=== PATIENT | female | born 1970 | race Caucasian/White ===

== ENCOUNTER 2022-05-26 11:12 | Emergency (ER) | payer OTHER, SELFPAY ==
--- NOTE | 2022-05-26 11:29 | XR_ITS ---
FINAL REPORT CLINICAL HISTORY: cough, soa, tightness/burning in chest FINDINGS: Two views of the chest were obtained. The heart size and pulmonary vascularity are within normal limits. The mediastinum is normal. No acute pulmonary abnormality is identified. There is no pneumothorax. The bony thorax is intact. IMPRESSION: No active cardiopulmonary disease. Reviewed, Interpreted and Dictated by Mitchell Delaney III, MD Transcribed by Brady Bueno Authenticated and [facility]
--- NOTE | 2022-05-26 11:31 | HMH.EDUTC ---
[facility] Disposition Clinical Impression: Viral syndrome Acute bronchitis Qualifiers: Bronchitis organism: unspecified organism Qualified Code(s): J20.9 - Acute bronchitis, unspecified Disposition: Home, Self-Care Condition on Discharge: Good Instructions: DI for COVID-19 (Suspected or Confirmed ), Preventing the Spread of Coronavirus Discharge Instructions Additional Instructions: Drink plenty of fluids. Take tylenol or ibuprofen for pain or fever. Take the medications as directed. Follow up with your regular doctor. GO TO THE ER FOR ANY WORSENING SYMPTOMS Quarantine until you know the results of your covid-19 test. Notify your school or workplace of your results and follow their instructions regarding return to work/school. Prescriptions: Benzonatate [Benzonatate 100mg cap] 100 mg PO TIDP PRN #30 cap PRN Reason: Cough Transmission Status: Received by [facility] methylPREDNISolone [Medrol] 4 mg PO DIRECTED 6 Days #21 packet Transmission Status: Received by [facility] Azithromycin [Z-Milton 250mg Tab*] 250 mg PO UD DOSE PK #6 tab Transmission Status: Received by [facility] Referrals: Provider,Referral, [Primary Care Provider] - Time of Disposition: 11:56 Medical Decision Making - Medical Records Medical records reviewed: No: I reviewed the patient's medical records. - Chinedu Inquiry Pt receiving controlled substance: No Vital Signs: 05/26/22 11:32 05/26/22 12:08 Temperature 98.3 F 98.3 F Temperature Source Oral Pulse Rate 110 H Pulse Rate [Left] 110 H Respiratory Rate 20 20 Blood Pressure 192/97 H Blood Pressure [Right Arm] 192/97 H Blood Pressure Mean [Right Arm] 128 02 Sat by Pulse Oximetry 97 Orders (Tests/Meds): ORDERS Category Date Time Status Covid-19 Nasal PCR ([facility]) Routine Lab 05/26/22 12:05 Received [facility] HPI - General Stated complaint: cough; tightness in chest Time Seen by Provider: 05/26/22 11:31 - History of Present Illness Provider Complaint: She states that for the past 2 days she has had body aches, chills, low grade fever, sinus congestion and ear pain. - Related Data Home Medications Medication Instructions Recorded Confirmed fenofibrate nanocrystallized 145 145 mg PO ONCE 18 mg tablet pravastatin 10 mg tablet 10 mg PO QHS 02/23/18 triamterene 37.5 0.5 tab PO QAM tab 02/23/18 mg-hydrochlorothiazide 25 mg tablet Previous Rx's Medication Instructions Recorded Azithromycin [Z-Milton 250mg Tab*] 250 mg PO UD DOSE PK #6 tab 05/26/22 Benzonatate [Benzonatate 100mg 100 mg PO TIDP PRN #30 cap 05/26/22 cap] methylPREDNISolone [Medrol] 4 mg PO DIRECTED 6 Days #21 05/26/22 packet Allergies Allergy/AdvReac Type Severity Reaction Status Date / Time Penicillins Allergy Verified 05/26/22 11:35 [facility] History - Hepatitis A Screen Attestation statement:: This patient has been screened for Hepatitis A risk factors. I have reviewed the patient's past medical history: Yes Medical History: Reports:: Hyperlipidemia, Hypertension Other Surgeries: Yes: Appendectomy, - Social History Smoking Status: Current every day smoker Tobacco Type: cigarettes # Packs/Day (cigarettes): 1 Alcohol Intake: never Substance Use Type: denies use Family Hx:: Hyperlipidemia, Hypertension, Diabetes, Heart Attack, Cancer ROS Obtained: Yes All systems reviewed & no additional complaints - Constitutional Constitutional: Reports as per HPI - Eyes Eyes: Denies eye discharge - ENT Ears, Nose, Mouth, and Throat: Reports as per HPI - Cardiovascular Cardiovascular: Denies chest pain - Respiratory Respiratory: Reports chest congestion, Reports cough Physical Exam - General General appearance: alert, in no apparent distress - Head Head exam: atraumatic, normocephalic, normal inspection - Eye Eye exam: Present: normal appearance, PERRL, EOMI - ENT ENT exa
[2022-05-26 11:32] VITALS: BP 192/97; PULSE 110; RESP 20; TEMP 36.8; O2SAT 97; BMI 39.8
[2022-05-26 12:08] VITALS: BP 192/97; PULSE 110; RESP 20; TEMP 36.8
== END 2022-05-26 12:09 | disposition home or self-care (01) ==
PROVIDERS: Emergency Provider Nurse Practitioner Family
DX: J20.9 Acute bronchitis, unspecified (principal); H92.09 Otalgia, unspecified ear; Z20.822 Contact with and (suspected) exposure to COVID-19; I10 Essential (primary) hypertension; E78.5 Hyperlipidemia, unspecified; M79.10 Myalgia, unspecified site; F17.210 Nicotine dependence, cigarettes, uncomplicated; Z79.52 Long term (current) use of systemic steroids; Z88.0 Allergy status to penicillin; Z82.49 Family history of ischemic heart disease and other diseases of the circulatory system; Z83.438 Family history of other disorder of lipoprotein metabolism and other lipidemia; Z83.3 Family history of diabetes mellitus; Z80.9 Family history of malignant neoplasm, unspecified
CPT/HCPCS: 71046; 99213; C9803; G0463; U0003; U0005

== ENCOUNTER 2022-09-07 10:33 | Emergency (ER) | payer OTHER, SELFPAY ==
[2022-09-07 12:15] VITALS: BP 175/105; PULSE 96; RESP 20; TEMP 37.1; O2SAT 95; BMI 37.5
--- NOTE | 2022-09-07 12:36 | EXP.UTC ---
Discharge Plan Disposition Patient Disposition: Home, Self-Care Condition: Good Prescriptions Prescriptions: New prednisone 10 mg tablet 10 mg PO BID 5 Days Qty: 10 0RF guaifenesin [Mucinex] 600 mg tablet extended release 12hr 600 mg PO BID PRN (Reason: cough) Qty: 20 0RF azithromycin [Zithromax Z-Milton] 250 mg tablet See Rx Instructions .ROUTE .COMPLEX 5 Days Qty: 6 0RF Rx Instructions: For 250 mg dose pack: take 500 mg today (day 1), then 250 mg for 4 days (days 2-5) methocarbamol 500 mg tablet 500 mg PO BID PRN (Reason: muscle spasm) Qty: 14 0RF benzonatate 100 mg capsule 100 mg PO TID PRN (Reason: cough) Qty: 15 0RF Rx Instructions: take at night to help with cough so you can rest No Action azithromycin 250 MG tablet 250 mg PO UD DOSE PK Qty: 6 0RF Rx Instructions: Take two (2) tablets today, then one (1) tablet days #2 thru #5 benzonatate 100 MG capsule 100 mg PO TIDP PRN (Reason: Cough) Qty: 30 0RF methylprednisolone 4 MG tablets,dose pack 4 mg PO DIRECTED 6 Days Qty: 21 0RF Referrals Follow up/Referrals: Nura Vazquez MD [Primary Care Provider] - See instructions Activity Restrictions/Add. Instructions Additional Instructions/Restrictions: Start antibiotic today. Be sure to complete entire prescription even if feeling better Monitor temp. Tylenol every 4 hours as needed and / or ibuprofen every 6 hours as needed ( As long as your primary care physician has told you that it ok to take both. For fever/aches/pains ER if no less than 101 despite Tylenol or Motrin Humidifier/vaporizer or hot steamy shower Inhaler every 4-6 hours as needed like we discussed. If unsure how to use it, ask pharmacist to demonstrate how. Should help open airways and improve cough, wheezing, and shortness of breath Mucinex for your cough and chest congestion Be sure to drink lots of water. *Tessalon Perles will not cause drowsiness but use at bedtime to help stop cough so that you may get some rest. *Start steroid today. Helps with inflammation therefore, cough and wheezing. Follow directions on the package. Reviewed side effects. Patient reports taking them before. Follow up IMMEDIATELY for new or worsening of symptoms OR no noticeable improvement over the next 48-72 hours. 911 immediately for any life threatening symptoms such as chest pain or difficulty breathing Clinical Impressions Clinical Impression: Sinusitis, Bronchitis Instructions Patient Instructions: DI for Sinusitis, Sinusitis Discharge ED Provider: Jagruti Barrett [facility] [place] General Stated complaint: sob, back pain, cough Mode of Arrival: Ambulatory Source of Information: Patient Limitations: No Limitations Time Seen by Provider: 09/07/22 12:36 Description of Symptoms (Recalled from Triage Doc. by RN): PATIENT C/O PRODUCTIVE COUGH THAT STARTED A WEEK AGO AND HAS GOTTEN WORSE. ALSO C/O MID-BACK PAIN, SOA AND WHEEZING HEENT Symptoms (Recalled from RN notes): No Resp Symptoms (Recalled from RN notes): Yes Skin Symptoms (Recalled from RN notes): No MS Symptoms (Recalled from RN notes): No Functional Status (Recalled from RN notes): WNL History of Present Illness Provider Complaint: Patient states that she hasnt felt well for over a week States that she has been having sinus congestion and pressure, cough, pain in her mid back from coughing so much thinks she may have pulled a muscle and felt a little SOA at times after cough and wheezing at night States that today she wasnt feeling any better and has been taking OTC cold medications but they having helped much Related Data Home Medications Medication Instructions Recorded Confirmed fenofibrate nanocrystallized 145 145 mg PO ONCE 02/23/18 mg tablet pravastatin 10 mg tablet 10 mg PO QHS 02/23/18 triamterene 37.5 0.5 tab PO QAM 02/23/18 mg-hydrochlorothiazide 25 mg tablet P
[2022-09-07 12:50] VITALS: BP 160/100; PULSE 96; RESP 20; TEMP 37.1; O2SAT 95
== END 2022-09-07 12:58 | disposition home or self-care (01) ==
PROVIDERS: Emergency Provider Nurse Practitioner; PCP Family Medicine
DX: R06.02 Shortness of breath (principal); M54.6 Pain in thoracic spine; R05.9 Cough, unspecified; R50.9 Fever, unspecified; R09.89 Other specified symptoms and signs involving the circulatory and respiratory systems; R51.9 Headache, unspecified; I10 Essential (primary) hypertension; E78.5 Hyperlipidemia, unspecified; J45.909 Unspecified asthma, uncomplicated; F17.210 Nicotine dependence, cigarettes, uncomplicated; Z79.52 Long term (current) use of systemic steroids; Z79.899 Other long term (current) drug therapy; Z88.0 Allergy status to penicillin; Z88.8 Allergy status to other drugs, medicaments and biological substances; Z85.9 Personal history of malignant neoplasm, unspecified
CPT/HCPCS: 99213; G0463

== ENCOUNTER → 2022-10-24 12:36 | Outpatient (CLI) | payer OTHER, SELFPAY ==
--- NOTE | 2022-10-24 12:40 | MM_ITS ---
PROCEDURE INFORMATION: Exam: MG Bilateral Screening 3D Mammography Exam date and time: 10/24/2022 12:57 PM Age: 52 years old Clinical indication: Screening. No family history of breast cancer. TECHNIQUE: Imaging protocol: Bilateral Screening tomosynthesis and 2D mammography including computer-aided detection (CAD) when performed. COMPARISON: 1. MG DMSB DIGITAL MAMM-SCREEN BILATERAL 11/03/2010 4:47 PM 2. MG DIGMAMMS MAMMOGRAM SCREEN-PROCUREMENT ANALYST N/C 09/28/2007 9:57 AM 3. MG DIGMAMMS MAMMOGRAM SCREEN-PROCUREMENT ANALYST N/C 09/03/2004 9:57 AM FINDINGS: MAMMOGRAPHY: Breast composition: There are scattered areas of fibroglandular density. Mass: No suspicious mass.Architectural distortion: None. Calcifications: No suspicious calcifications. Asymmetric density: None. Skin thickening: None. Axillary adenopathy: None. IMPRESSION: No mammographic evidence of malignancy. Annual screening is recommended unless otherwise clinically indicated. ASSESSMENT: BI-RADS Category 1: Negative
== END ==
PROVIDERS: PCP Family Medicine; Visit Provider Family Medicine
DX: Z12.31 Encounter for screening mammogram for malignant neoplasm of breast (principal)
CPT/HCPCS: 77063; 77067

== ENCOUNTER 2024-06-27 10:08 | Emergency (ER) | payer OTHER, SELFPAY ==
[2024-06-27 10:10] VITALS: BP 150/104; PULSE 121; RESP 20; TEMP 36.6; O2SAT 94; BMI 37.2
--- NOTE | 2024-06-27 10:26 | ECG_ITS ---
APPROVED REPORT Exam: Resting ECG HR:118 bpm ECG Measurements Heart Rate 118 AXES CO 120 P 57 QRSd 80 QRS -42 QT 305 T 37 QTc 375 Conclusion Sinus tachycardia Left axis deviation Electronically signed by : NEGIN RILEY, 06/27/2024 15:44:52
[2024-06-27 10:30] VITALS: BP 136/92; PULSE 117; O2SAT 97
[2024-06-27 10:50] LABS: Microscopic, Urine URINE MICROSCOPIC (MICROSCOPIC)
[2024-06-27 10:50] LABS: Basophils # 0.1 K/mm3 (0-0.2); Basophils % 1.1 % (0.1-2.0); Eosinophils # 0.2 K/mm3 (0.0-0.4); Eosinophils % 2.2 % (0.1-12.0); Hematocrit 54.6 % (37.0-47.0); Hemoglobin 17.4 g/dL (12.2-16.2); Lymphocytes # 2.6 K/mm3 (0.7-4.5); Lymphocytes % 25.5 % (10-50); Mean Corpuscular HGB Conc 31.8 g/dL (31.8-35.4); Mean Corpuscular Volume 97.4 fl (81-99); Mean Platelet Volume 8.3 fl (7.4-10.4); Monocytes # 0.5 K/mm3 (0.1-1.0); Neutrophils # 6.6 K/mm3 (1.8-7.8); Neutrophils % 66.1 % (37.0-80.0); Platelet Count 247 K/mm3 (142-424); Red Blood Count 5.61 M/mm3 (4.20-5.40); Red Cell Distribution Width 15.2 % (11.5-17.5)
--- NOTE | 2024-06-27 11:00 | PC.NURSE ---
PT ambulatory to bathroom
[2024-06-27 11:01] LABS: Appearance,Urine CLEAR (Clear); Bilirubin,Urine Negative (Negative); Blood, Urine Negative (Negative); Color,Urine YELLOW (Yellow); Glucose,Urine (UA) Negative (Negative); Ketones,Urine Negative (Negative); Leukocyte Esterase,Urine Negative (Negative); Nitrate,Urine Negative (Negative); Protein,Urine Negative (Negative); Urobilinogen,Urine 0.2 EU/dl (0.2)
[2024-06-27 11:04] LABS: Albumin Level 4.6 g/dl (3.5-5.0); Chloride 106 mmol/L (98-107); Potassium 4.2 mmoL/L (3.5-5.1); Sodium 136 mmol/L (136-145)
[2024-06-27 11:07] LABS: Alanine Aminotransferase 42 U/L (12-78); Albumin/Globulin Ratio 1.5 (1.1-1.8); Alkaline Phosphatase 63 U/L (38-126); Anion Gap 10.2 mEq/L (5-15); Aspartate Amino Transferase 24 U/L (14-36); Bilirubin,Total 0.8 mg/dl (0.2-1.3); Blood Urea Nitrogen 12 mg/dl (7-17); Calcium 9.6 mg/dl (8.4-10.2); Carbon Dioxide 24 mmol/L (22.0-30.0); Creatinine Clearance Estimated 119 mL/min (50-200); Estimated Glomerular Filt Rate 74 ml/min (>60); GFR (African American) 90 ML/MIN (>60); Globulin 3.1 g/dL (1.3-3.2); Glucose 153 mg/dl (74-100); Lipase 137 U/L (23-300); Total Protein,Serum 7.7 g/dl (6.3-8.2)
--- NOTE | 2024-06-27 11:13 | ED_ITS ---
Discharge Plan Disposition Patient Disposition: Home, Self-Care Chief Complaint: Abdominal Pain Prescriptions Prescriptions: No Action azithromycin 250 MG tablet 250 mg PO UD DOSE PK Qty: 6 0RF Rx Instructions: Take two (2) tablets today, then one (1) tablet days #2 thru #5 benzonatate 100 MG capsule 100 mg PO TIDP PRN (Reason: Cough) Qty: 30 0RF methylprednisolone 4 MG tablets,dose pack 4 mg PO DIRECTED 6 Days Qty: 21 0RF prednisone 10 mg tablet 10 mg PO BID 5 Days Qty: 10 0RF guaifenesin [Mucinex] 600 mg tablet extended release 12hr 600 mg PO BID PRN (Reason: cough) Qty: 20 0RF azithromycin [Zithromax Z-Milton] 250 mg tablet See Rx Instructions .ROUTE .COMPLEX 5 Days Qty: 6 0RF Rx Instructions: For 250 mg dose pack: take 500 mg today (day 1), then 250 mg for 4 days (days 2-5) methocarbamol 500 mg tablet 500 mg PO BID PRN (Reason: muscle spasm) Qty: 14 0RF benzonatate 100 mg capsule 100 mg PO TID PRN (Reason: cough) Qty: 15 0RF Rx Instructions: take at night to help with cough so you can rest Referrals Follow up/Referrals: Nura Vazquez MD [Primary Care Provider] - See instructions Activity Restrictions/Add. Instructions Additional Instructions/Restrictions: Call your family doctor to establish care for this visit to the emergency department and schedule follow-up within 48 hours to ensure improvement. If you have any worsening of your condition or any other concerning signs or symptoms, return to the emergency department or your primary care doctor for further evaluation. [facility] gynecologic oncology will contact you to set up an appointment. Be sure to take the disc with your CT scans on it from today as well as the packet today with all the information to your first appointment. Clinical Impressions Clinical Impression: Diarrhea, Pelvic mass Instructions Patient Instructions: DI for Acute Abdominal Pain Print Language Print Language: Czech Discharge ED Provider: Andrea Garvin General Adult HPI General Chief complaint: Abdominal Pain Stated complaint: abd pain, back pain, diarrhea Time Seen by Provider: 06/27/24 10:25 Mode of Arrival: Ambulatory Source of Information: Patient Limitations: No Limitations Description of Symptoms (Recalled from ER Triage Doc. by RN): severe abdominal pain,possible blood in stool History of Present Illness HPI narrative: Please note that above description of symptoms, in this electronic medical record under categorization of recalled from ER triage doctor by RN are reflective of an initial nursing assessment, however, is not reflective of my full history and physical exam that was personally taken and clarified. Consequentially, this preceding description of symptoms, which may include the patient's categorized chief complaint in the EMR, do not reflect my personal clinical impression, and the ultimate description of history of present illness and patient stated complaints should be deferred to this section of the note. Unless stated otherwise or congruent with this section of the note, additional signs, symptoms, or incongruence should be interpreted as inaccurate with my clinical impression. Related Data Home Medications ?Medication ?Instructions ?Recorded ?Confirmed fenofibrate nanocrystallized 145 145 mg PO ONCE 02/23/18 mg tablet pravastatin 10 mg tablet 10 mg PO QHS 02/23/18 triamterene 37.5 0.5 tab PO QAM 02/23/18 mg-hydrochlorothiazide 25 mg tablet Previous Rx's ?Medication ?Instructions ?Recorded azithromycin 250 mg tablet 250 mg PO UD DOSE PK #6 tabs 05/26/22 benzonatate 100 mg capsule 100 mg PO TIDP PRN Cough #30 caps 05/26/22 methylprednisolone 4 mg tablets in 4 mg PO DIRECTED 6 days #21 05/26/22 a dose pack packets azithromycin 250 mg tablet See Rx Instructions PO .COMPLEX 5 09/07/22 (Zithromax Z-Milton) days #6 tabs benzonatate 100 mg capsule 100 mg PO TID PRN cough #15 caps 09/07/22 guaifenesin 600 mg tablet, 600 mg PO BID PRN cough #20 tabs 09/07/22 extended release 12 hr (Mucinex) methocarbamol 500 mg tablet 500 mg PO BID PRN muscle spasm #14 09/07/22 tabs prednisone 10 mg tablet 10 mg PO BID 5 days #10 tabs 09/07/22 Allergies Allergy/AdvReac Type Severity Reaction Status Date / Time levofloxacin [From Levaquin] Allergy Verified 09/07/22 12:30 Penicillins Allergy Verified 05/26/22 11:35 [facility] Disclaimer: The information contained in this section may have been updated after the patient was seen, as this information can be updated by other users. Medical History (Updated 06/27/24 @ 13:32 by Andrea Garvin MD) Cancer Asthma Hyperlipidemia Hypertension Surgical History (Updated 09/07/22 @ 12:30 by Patricia Botello RN) History of appendectomy History of section History of cholecystectomy Social History (Updated 09/07/22 @ 12:50 by Jagruti Barrett APRN) Smoking Status: Current every day smoker tobacco type: cigarettes packs per day: 1 alcohol intake: never substance use type: denies use current occupational status: other Travel in the last 8 weeks: None ROS Obtained: Yes All systems reviewed & no additional complaints except as documented Physical Exam General General appearance: alert Head Head exam: atraumatic and normocephalic Eye Eye exam: Present normal appearance, PERRL and EOMI Neck Neck exam: Present normal inspection, full ROM and trachea midline Respiratory Respiratory exam: Absent respiratory distress, wheezes, stridor, accessory muscle use or prolonged expiratory phase Cardiovascular Cardiovascular exam: Present other (Pulses equal symmetric in upper and lower extremities) Abdominal Exam Abdominal exam: Present soft and distention; Absent tenderness or pulsatile mass Extremities Exam Extremities exam: Absent edema Neurological Exam Neurological exam: Present alert, oriented X3 and CN II-XII intact; Absent motor sensory deficit Skin Skin exam: Present warm and dry; Absent diaphoresis or erythema Medical Decision Making Medical Records Medical records reviewed: Yes I reviewed the patient's medical records. Chinedu Inquiry Pt receiving controlled substance: No Chinedu was queried for this patient: No Vital Signs: 06/27/24 10:10 06/27/24 10:30 06/27/24 11:15 Temperature 98 F Temperature Source Oral Pulse Rate 117 H 102 H Pulse Rate [Right] 121 H Respiratory Rate 20 Blood Pressure 136/92 H 130/95 H Blood Pressure [Right Arm] 150/104 H Blood Pressure Mean [Right Arm] 119 02 Sat by Pulse Oximetry 94 L 97 96 Oxygen Delivery Method Room Air Room Air 06/27/24 12:30 06/27/24 13:00 Temperature Temperature Source Pulse Rate 82 84 Pulse Rate [Right] Respiratory Rate Blood Pressure 111/79 124/85 Blood Pressure [Right Arm] Blood Pressure Mean [Right Arm] 02 Sat by Pulse Oximetry 96 97 Oxygen Delivery Method Room Air Room Air Lab Data Lab Results 06/27/24 10:18: WBC 10.0, RBC 5.61 H, Hgb 17.4 H, Hct 54.6 H, MCV 97.4, MCH 31.0, MCHC 31.8, RDW 15.2, Plt Count 247, MPV 8.3, Neut % (Auto) 66.1, Lymph % (Auto) 25.5, Tift % (Auto) 5.0, Eos % (Auto) 2.2, Baso % (Auto) 1.1, Neut # (Auto) 6.6, Lymph # (Auto) 2.6, Tift # (Auto) 0.5, Eos # (Auto) 0.2, Baso # (Auto) 0.1, Sodium 136, Potassium 4.2, Chloride 106, Carbon Dioxide 24, Anion Gap 10.2, BUN 12, Creatinine 0.80, Estimated Creat Clear 119, Estimated GFR 74, Est GFR ( Amer) 90, Glucose 153 H, Calcium 9.6, Total Bilirubin 0.8, AST 24, ALT 42, Alkaline Phosphatase 63, Troponin I < 0.01, Total Protein 7.7, Albumin 4.6, Globulin 3.1, Albumin/Globulin Ratio 1.5, Lipase 137 06/27/24 10:33: Urine Color Yellow, Urine Appearance Clear, Urine pH 6.0, Ur Specific Fisher 1.010, Urine Protein Negative, Urine Glucose (UA) Negative, Urine Ketones Negative, Urine Blood Negative, Urine Nitrate Negative, Urine Bilirubin Negative, Urine Urobilinogen 0.2, Ur Leukocyte Esterase Negative, Urine RBC None, Urine WBC Occasional, Ur Squamous Epith Cells 5-10, Urine Bacteria Trace 06/27/24 11:03: Stool Occult Blood Positive A 06/27/24 12:52: Lactate 1.2 06/27/24 10:18 06/27/24 10:18 Orders (Tests/Meds): ED MEDICATIONS Discontinued Medications Generic Name Dose Route Start Last Admin Trade Name Freq PRN Reason Stop Dose Admin Acetaminophen 1,000 mg 06/27/24 11:16 06/27/24 11:21 Acetaminophen 500mg Tab PO 06/27/24 11:17 1,000 mg ONCE ONE Administration Lactated Ringer's 1,000 mls @ 999 mls/hr 06/27/24 11:16 06/27/24 11:21 Lactated Ringer's 1000 Ml Bag IV 06/27/24 12:16 999 mls/hr .Q1H1M ONE Administration Iopamidol 80 ml 06/27/24 11:59 06/27/24 12:00 Iopamidol-370 (76%);100ml Bottle IV 06/27/24 12:00 80 ml ONCE ONE Administration Ketorolac Tromethamine 15 mg 06/27/24 11:16 06/27/24 11:21 Ketorolac 30mg/Ml Vial IV 06/27/24 11:17 15 mg ONCE ONE Administration Ondansetron HCl 4 mg 06/27/24 11:16 06/27/24 11:21 Ondansetron 4mg/2ml Vial IV 06/27/24 11:17 4 mg ONCE ONE Administration Sodium Chloride 10 ml 06/27/24 11:59 06/27/24 12:00 Sodium Chloride 0.9% 10ml Syr (Rad Only) IV 06/27/24 12:00 10 ml ONCE ONE Administration Sodium Chloride 50 ml 06/27/24 11:59 06/27/24 12:00 0.9 % Sodium Chloride 50 Ml Vial IV 06/27/24 12:00 50 ml ONCE ONE Administration ORDERS Category Date Time Status CT angio abdomen pelvis Stat Cat Scan 06/27/24 11:47 Completed Complete Blood Count Auto Diff Stat Lab 06/27/24 10:18 Completed Comprehensive Metabolic Panel Stat Lab 06/27/24 10:18 Completed Diarrhea 23 Panel, PCR Stat Lab 06/27/24 11:06 Received Lactic Acid Stat Lab 06/27/24 12:52 Completed Lipase Stat Lab 06/27/24 10:18 Completed Occult Blood,Stool Stat Lab 06/27/24 11:03 Completed Troponin I Stat Lab 06/27/24 10:18 Completed UA [Urinalysis and Microscopic] Stat Lab 06/27/24 10:33 Completed Medical Decision Narrative: 53-year-old female history of remote C. difficile presenting with abdominal cramping, diarrhea, pain. Patient states that she has been having this for a few days at this point, pain has been getting worse. States that she feels like it starts in bilateral flanks, squeezes her got, then radiates into her belly and toward her back. Nausea without vomiting. States that her stool has been dark, largely water. Tolerating p.o. intake without issue. Has not been on antibiotics or had recent run in with medical system recently. No fevers or chills, lower extremity deficits, urinary symptoms, or any other problems. History was obtained via conversation with patient. On arrival, patient hemodynamically stable, alert, oriented x4, appropriate, GCS 15, moving all extremities spontaneously, pupils equal and reactive to light. Full physical exam performed and significant for uncomfortable appearing female in no acute distress. She is sitting leaning over table with her legs hanging off the bed. Speaking in full sentences. No flank tenderness, no overlying skin changes. Abdomen is soft, nontender, but distended primarily midline to the left side and appears to be firm. Not particularly tender. No epigastric tenderness. Differential includes PUD, gastritis, cholecystitis, pancreatitis, small bowel obstruction, aortic pathology, mesenteric ischemia, nephrolithiasis, UTI, pyelonephritis, malignancy, IBS, IBD, among others. Patient placed on continuous cardiac monitoring and continuous pulse ox with initial blood pressure 136/92, heart rate 117, saturation 94% on room air. Independent interpretation of EKG shows sinus tachycardia [address] or T wave changes concerning for acute ischemia. [place] 120, QRS 80, QTc 375. Patient was given Zofran, Toradol, fluids for symptomatic management and correction of underlying abnormalities. Workup independently interpreted and significant for nonactionable CBC or chemistry. Lactate negative, troponin negative. Occult stool positive. Urinalysis without concern for UTI. On independent interpretation of imaging, patient has a large abdominal mass around 30 cm which appears to originate on the right ovary. Radiology read imaging and thinks it may be related to subserosal fibroid. See radiology read for full review of final results. OB on-call was contacted and case was discussed at length, recommended transfer. Stool panel pending at time of discharge. Conversation was had the patient regarding risks, benefits of transfer versus staying here. Patient is disagreeable to either. States she needs to go home because she has grandkids to take care of. The patient chose to be discharged after a thorough discussion of the risks of doing so, including a discussion of potential alternative plans. 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 The patient appears capable of making this decision. I have advised the patient to immediately return if there are any further problems or if they change their mind about seeking further care. I feel the patient is stable to do this workup outpatient at [facility]. Close return precautions were given. I told her that I would call her stool panel is positive, she voiced her understanding. [facility] gynecologic oncology was contacted and case was discussed at length, outpatient appointments to be scheduled and information given to set these up. Because patient at baseline without signs or symptoms of clinical decompensation, deemed appropriate for discharge. Results were relayed to patient who voiced understanding and were agreeable to outpatient management and follow up. I discussed my clinical impression with patient and answered all questions. At this time, the evidence for any other entities in the differential is insufficient to warrant any further testing or ED observation. This was explained as well. Advisory was given that persistent or worsening symptoms require further evaluation. I confirmed the understanding of this discussion. 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 Electronic printed circuit board panels trimmer of the spoken language may permit errors. Although I have reviewed the note, some errors may still exist. Critical Care Critical Care Time Critical Care Time: No
[2024-06-27 11:15] VITALS: BP 130/95; PULSE 102; O2SAT 96
[2024-06-27] MEDS: LACTATED RINGERS 1000ML 1,000 ML 999 ML IV (11:21)
[2024-06-27] MEDS: KETOROLAC 30MG/ML VIAL 15 MG IV (11:21)
[2024-06-27] MEDS: ACETAMINOPHEN 500MG TAB 1000 MG PO (11:21)
[2024-06-27] MEDS: ONDANSETRON 4MG/2ML VIAL 4 MG IV (11:21)
[2024-06-27 11:32] LABS: Occult Blood,Stool Positive (Negative)
[2024-06-27 11:34] LABS: Adenovirus F 40/41, stool Not Detected (NotDetected); Astrovirus Not Detected (NotDetected); Campylobacter Not Detected (NotDetected); Cryptosporidium Not Detected (NotDetected); Cyclospora Cayetanesis Not Detected (NotDetected); Entamoeba histolytica Not Detected (NotDetected); Enteroaggregative E coli Not Detected (NotDetected); Enterotoxigenic E coli Not Detected (NotDetected); Giardia lamblia Not Detected (NotDetected); Norovirus Not Detected (NotDetected); Plesimonas Shigalloides, PCR Not Detected (NotDetected); Rotavirus A Not Detected (NotDetected); Salmonella, PCR Not Detected (NotDetected); Sapovirus Not Detected (NotDetected); Shiga-like toxin E coli Not Detected (NotDetected); Shigella Enterovasive E coli Not Detected (NotDetected); Vibrio Cholerae Not Detected (NotDetected); Vibrio, PCR Not Detected (NotDetected); Yersinia Entercolitica, PCR Not Detected (NotDetected)
[2024-06-27 11:37] LABS: Bacteria,Urine Trace /lpf; WBC,Urine Occasional #/hpf (0-3)
[2024-06-27 11:43] LABS: Troponin I < 0.01 ng/ml (0.00-0.034)
--- NOTE | 2024-06-27 11:47 | CT_ITS ---
FINAL REPORT TECHNIQUE: Pre-and postcontrast images of the abdomen and pelvis were performed by computed tomography. Extensive 3-D reconstruction images were performed. A CTA was performed. This study was performed with techniques to keep radiation doses as low as reasonably achievable (ALARA). Individualized dose reduction techniques using automated exposure control or adjustment of mA and/or kV according to the patient''s size were employed. CLINICAL HISTORY: hematochezia, cramping abd pain FINDINGS: ABDOMEN/PELVIS: There is mild bibasilar atelectasis. Precontrast images demonstrate no evidence of nephrolithiasis. The patient is status post cholecystectomy. Right adrenal nodule measures 10 mm, favor myelolipoma. There is fatty infiltration of the liver. Mild vascular calcification is identified. The spleen, pancreas, and kidneys are unremarkable. There is a large abdominal pelvic mass measuring 26 x 19 x 16 cm descending inferiorly to the level of the superior border of the uterus, could represent a very large subserosal fibroid or other solid neoplasm. The appendix is not well visualized. CTA: The abdominal aorta is proper caliber. There is mild stenosis involving the proximal SMA measuring less than 50%. There are prominent vessels within the large abdominal pelvic mass, predominantly in the periphery. This appears to be mostly branches of the internal iliac arteries. The celiac axis, and TERRELL are patent. There is no significant stenosis or calcification. The renal arteries are patent bilaterally. The iliac arteries are normal without evidence of stenosis. IMPRESSION: Large abdominal pelvic mass, could represent very large subserosal fibroid or other solid neoplasm. Reviewed, Interpreted and Dictated by Mitchell Delaney III, MD Transcribed by Lakesha Cazares Authenticated and [facility]
[2024-06-27] MEDS: IOPAMIDOL-370 (76%);100ML BOTTLE 80 ML IV (12:00)
[2024-06-27] MEDS: 0.9 % SODIUM CHLORIDE 50 ML VIAL IV (12:00)
[2024-06-27] MEDS: SODIUM CHLORIDE 0.9% 10ML SYR (RAD ONLY) 10 ML IV (12:00)
[2024-06-27 12:30] VITALS: BP 111/79; PULSE 82; O2SAT 96
[2024-06-27 13:00] VITALS: BP 124/85; PULSE 84; O2SAT 97
[2024-06-27 13:21] LABS: Lactic Acid 1.2 mmol/L (0.7-2.1)
[2024-06-27 13:37] VITALS: BP 132/84; PULSE 85; RESP 20; TEMP 36.6; O2SAT 95
--- NOTE | 2024-06-27 13:51 | PC.NURSE ---
Called Gynecologic/Oncolgy office to make a follow up appt for this pt. gave an appt on Jul 04 at 1230. Pt said she could not do that day. Pt was given the office number for Gyne/On and would schedule the appt herself. Called office back and advised them that they would be hearing from this pt due to her not being able to keep the Jul 04 appt.
[2024-06-27 15:12] LABS: Enteropathogenic E coli Detected (NotDetected)
[2024-06-27 15:15] LABS: Clostridium Difficile A/B, PCR Detected (NotDetected)
--- NOTE | 2024-06-27 16:24 | PC.NURSE ---
attempted to call pt about diarrhea panel results, no answer, will attempt to call back
--- NOTE | 2024-06-29 10:45 | PC.NURSE ---
CONTACTED PT AT THIS TIME. PT DID PICK-UP RX FOR VANCO.
== END 2024-06-27 13:52 | disposition home or self-care (01) ==
PROVIDERS: Emergency Provider Emergency Medicine; PCP Family Medicine
DX: R10.9 Unspecified abdominal pain (principal); R19.00 Intra-abdominal and pelvic swelling, mass and lump, unspecified site; J45.909 Unspecified asthma, uncomplicated; E78.5 Hyperlipidemia, unspecified; I10 Essential (primary) hypertension
CPT/HCPCS: 74174; 80053; 81001; 82272; 83605; 83690; 84484; 85025; 87507; 93005; 96361; 96374; 96375; 99285; G0328; J1885; J2405; J7120; Q9967

== ENCOUNTER 2024-08-06 11:22 | Emergency (ER) | payer OTHER, SELFPAY ==
[2024-08-06 11:30] VITALS: BP 197/121; PULSE 113; RESP 20; TEMP 36.7; O2SAT 97; BMI 37.5
--- NOTE | 2024-08-06 11:43 | ED_ITS ---
Discharge Plan Disposition Patient Disposition: Home, Self-Care Condition: Good Prescriptions Prescriptions: New clindamycin HCl 300 mg capsule 300 mg PO Q8H Qty: 30 0RF mupirocin 2 % ointment 1 applic topical TID 7 Days Qty: 15 0RF No Action metoprolol succinate 50 mg tablet extended release 24 hr 50 mg PO DAILY Patient Comments: TAKE ONE TABLET BY MOUTH EVERY DAY ibuprofen 400 mg tablet 400 mg PO QID lisinopril 5 mg tablet 5 mg PO DAILY Patient Comments: TAKE ONE TABLET BY MOUTH EVERY DAY enoxaparin 40 mg/0.4 mL syringe 40 mg SQ DAILY rosuvastatin 10 mg tablet 10 mg PO HS Patient Comments: TAKE ONE TABLET BY MOUTH EVERY DAY AT BEDTIME Referrals Follow up/Referrals: Provider,Referral, MD [Primary Care Provider] - See instructions Activity Restrictions/Add. Instructions Additional Instructions/Restrictions: Take the medications as directed. Follow up with your regular doctor. Follow up with your surgeon. Let them know that we started you on an antibiotic and took a culture of the site. GO TO THE ER FOR ANY WORSENING SYMPTOMS We took a culture of the wound. That will tell if this is an infection and which antibiotics will treat it best. This test takes 3 days to complete. Clinical Impressions Clinical Impression: Incisional infection Instructions Patient Instructions: Clindamycin, Mupirocin Print Language Print Language: Paraguayan Discharge ED Provider: Onel Barney [facility] General Stated complaint: spot on incision infected surgery 07/23 Time Seen by Provider: 08/06/24 11:30 History of Present Illness Provider Complaint: She states that she had a hysterectomy done at [facility] on 07/23. She has been doing well since her surgery, but yesterday she noticed that there is an area near the top of her incision that has redness around it and has clear drainage. She called her surgeon's office at but she states that didn't set her up an appointment. Related Data Home Medications ?Medication ?Instructions ?Recorded ?Confirmed enoxaparin 40 mg/0.4 mL 40 mg SQ DAILY 08/06/24 08/06/24 subcutaneous syringe ibuprofen 400 mg tablet 400 mg PO QID 08/06/24 08/06/24 lisinopril 5 mg tablet 5 mg PO DAILY 08/06/24 08/06/24 metoprolol succinate 50 mg 50 mg PO DAILY 08/06/24 08/06/24 tablet,extended release 24 hr rosuvastatin 10 mg tablet 10 mg PO HS 08/06/24 08/06/24 Previous Rx's ?Medication ?Instructions ?Recorded clindamycin HCl 300 mg capsule 300 mg PO Q8H #30 caps 08/06/24 mupirocin 2 % topical ointment 1 applic topical TID 7 days #15 08/06/24 grams Allergies Allergy/AdvReac Type Severity Reaction Status Date / Time levofloxacin [From Levaquin] Allergy Diarrhea Verified 08/06/24 11:45 Penicillins Allergy Rash Verified 08/06/24 11:45 [facility] Disclaimer: The information contained in this section may have been updated after the patient was seen, as this information can be updated by other users. Medical History (Updated 08/06/24 @ 11:56 by Onel Barney APRN) Cancer Asthma Hyperlipidemia Hypertension Surgical History (Updated 09/07/22 @ 12:30 by Patricia Botello RN) History of appendectomy History of section History of cholecystectomy Social History (Updated 09/07/22 @ 12:50 by Jagruti Barrett APRN) Smoking Status: Current every day smoker tobacco type: cigarettes packs per day: 1 alcohol intake: never substance use type: denies use current occupational status: other Travel in the last 8 weeks: None ROS Obtained: Yes All systems reviewed & no additional complaints except as documented Constitutional Constitutional: Denies chills and Denies fever(s) Eyes Eyes: Denies eye discharge ENT Ears, Nose, Mouth, and Throat: Denies dizziness, Denies otalgia and Denies sore throat Cardiovascular Cardiovascular: Denies chest pain Respiratory Respiratory: Denies shortness of breath, Denies chest congestion, Denies cough, Denies stridor and Denies wheezing Gastrointestinal Gastrointestingal: Denies nausea or vomiting Musculoskeletal Musculoskeletal: Reports system reviewed and no additional complaints, except as documented and Denies arthralgias Integumentary/Breasts Skin/Breast: Reports as per HPI, Reports redness and Reports other (midline abdominal surgical incision. ) Neurologic Neurologic: Denies dizziness and Denies paresthesias Allergic/Immunologic Allergic/Immunologic: Denies wheezing Physical Exam General General appearance: alert and in no apparent distress Head Head exam: atraumatic, normocephalic and normal inspection Eye Eye exam: Present normal appearance, PERRL and EOMI ENT ENT exam: Present normal exam, normal oropharynx, mucous membranes moist, TM's normal bilaterally and normal external ear exam Neck Neck exam: Present normal inspection, full ROM and trachea midline; Absent meningismus or lymphadenopathy Chest Chest inspection: Present normal inspection and symmetric chest wall rise; Absent tenderness Respiratory Respiratory exam: Present normal lung sounds bilaterally; Absent respiratory distress Cardiovascular Cardiovascular exam: Present regular rate and normal rhythm; Absent JVD Abdominal Exam Abdominal exam: Present soft and normal bowel sounds; Absent distention, tenderness or guarding Extremities Exam Extremities exam: Present normal inspection, full ROM and normal capillary refill; Absent calf tenderness Back Exam Back exam: Present normal inspection; Absent tenderness Neurological Exam Neurological exam: Present alert and oriented X3 Psychiatric Psychiatric exam: Present normal affect and normal mood Skin Skin exam: Present other (her midline abdominal surgical incision has a small area of mild erythema noted at the top of the incision near her umbilicus. there rest of the incision appears to be healing well and has no drainage or redness. ) Lymphatic Lymphatic Findings: no adenopathy Medical Decision Making Medical Records Medical records reviewed: No I reviewed the patient's medical records. Screening: Per USPSTF and CDC recommendations, given the prevalence of disease in our region, it is our hospital?s policy to screen for HIV and viral Hepatitis for all patients aged 18 and over and those with ongoing risk factors. [place] Inquiry Pt receiving controlled substance: No
[2024-08-06 11:57] VITALS: BP 197/121; PULSE 113; RESP 20; TEMP 36.7; O2SAT 97
== END 2024-08-06 11:59 | disposition home or self-care (01) ==
PROVIDERS: Emergency Provider Nurse Practitioner Family
DX: L08.9 Local infection of the skin and subcutaneous tissue, unspecified (principal)
CPT/HCPCS: 87070; 87077; 87186; 87205; 99213; G0381

== ENCOUNTER 2025-08-25 14:24 | Emergency (ER) | payer OTHER, SELFPAY ==
[2025-08-25 15:48] VITALS: BP 160/100; PULSE 82; RESP 20; TEMP 36.4; O2SAT 98; BMI 40.2
[2025-08-25 15:52] VITALS: BP 160/100; PULSE 90; RESP 18; O2SAT 97
--- OUTSIDE RECORDS SUMMARY | 2025-08-25 15:58 | XMS_ITS | Patient Health Record ---
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 Role Phone Jeannie Avery Primary Care Provider Allergies Allergen (clinical drug ingredient) Drug/Non Drug Allergy documented on EMR Reaction Allergy Type Onset Date Status Levaquin Unknown Drug Allergy Active Penicillin stomach upset Drug Allergy Ac tive Reason For Referral No Information Medications Medication SIG (Take, Route, Frequency, Duration) Notes Start Date End Date Status Metoprolol Succinate ER 50 mg TAKE ONE TABLET BY MOUTH EVERY DAY; Duration: 90 Active Cefuroxime Axetil 500 MG 1 tablet Orally every 12 hrs; Duration: 10 day(s) 07/18/2023 Active Fluticasone Propionate 50 MCG/ACT as directed in each nostril once a day 12/26/2022 Active Ventolin HFA 108 (90 Base) MCG/ACT 1-2 puff(s) inhaled 4 times a day, prn 11/24/2015 Active Ibuprofen 600 MG 1 tab(s) orally thre e times a day as needed Active Rosuvastatin Calcium 10 MG 1 tab(s) oral ly At Bed Time; Duration: 90 days Active Lisinopril 5 MG 1 tab(s) orally once a day; Duration: 30 days Active Triamterene-HCTZ 37.5-25 MG TAKE 1/2 TAB LET BY MOUTH EVERY DAY; Duration: 90 days Active Problems Problem Type SNOMED Code ICD Code Onset Dates Problem Status W/U Status Risk Notes Problem Sinusitis (75951654) Sinusitis (J32.9) Active confirmed Problem Hypertension (93515924) HTN (hypertension) (I10) Active confirmed Problem Hyperlipidemia (53361214) Hyperlipidemia (E78.5) Active confirmed Problem Essential hypertension (43542499) Essential hypertension (I10) Active confirmed Problem Chronic bronchitis (38992861) Chronic bronchitis (J42) Active confirmed Problem Dyslipidemia (815589108) Dyslipidemia (E78.5) Active confirmed Problem Allergic rhinitis caused by pollen (74895376) Seasonal allergic rhinitis due to pollen (J30.1) Active confirmed Problem Tobacco use (056004091) Tobacco use disorder (F17.200) Active confirmed Plan Of Treatment No Information Insurance Providers Payer Name Payer Address Payer Phone Subscriber Number Group Number Insured Name Patient Relationship to Insured Coverage Start Date Coverage End Date MARIANNE BEDOYA [address] [place], [place] [id number] ADRIAN GILMORE Self - patient is the insured Medical (General) History Medical History History ICD Code hyperlipidemia Hypertension smoking Sciatica Surgical History Surgery Date(Month/Year) appendectomy C section cholecystectomy Hospitalization History Reason Date(Month/Year) see above
--- OUTSIDE RECORDS SUMMARY | 2025-08-25 15:58 | XMS_ITS | Clinical Summary ---
Author Organization Healthcare Address [address] 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 Penicillins Hives,Diarrhea,Nausea Medium 06/28/2024 Patient states this is a childhood reaction that has not been retested in adulthood. Medications metoprolol succinate XL (Toprol-XL) 50 MG 24 hr tablet Take 1 tablet (50 mg) by mouth in the morning. 4 Active lisinopril 5 MG tablet Take 1 tablet (5 mg) by mouth in the morning. 4 Active triamterene-hy drochlorothiaz rj (Maxzide-25) 37.5-25 MG tablet Take 0.5 tablets by mouth in the morning. 4 Active acetaminophen (Tylenol) 325 MG tablet Take 2 tablets (650 mg) by mouth 1 (one) time each day if needed for pain. Active ibuprofen 200 MG tablet Take 2 tablets (400 mg) by mouth daily as needed for mild pain. Active pseudoephedrin e-Ibuprofen 30-200 MG tablet Take 1 tablet by mouth 1 (one) time each day if needed. Active acetaminophen (Tylenol) 325 MG tablet Take 2 tablets (650 mg) by mouth every 8 (eight) hours. Under [facility] law, monthly prescriptions (30 days) can be refilled at 25 days and three-month prescriptions (90 days) at 80 days. Please contact the insurance company with questions if refills are denied. 100 tablet Active Additional Information Patient not taking.Reported on 01/06/2025 ibuprofen 400 MG tablet Take 1 tablet (400 mg) by mouth every 8 (eight) hours. 40 tablet Active docusate sodium 100 MG capsule Take 100 mg by mouth 2 (two) times a day. 40 capsule Active Additional Information Patient not taking.Reported on 01/06/2025 senna (Senokot) 8.6 MG tablet Take 2 tablets (17.2 mg) by mouth every night. 40 tablet Active Additional Information Patient not taking.Reported on 01/06/2025 oxyCODONE (Roxicodone) 5 MG immediate release tablet Take 1 tablet (5 mg) by mouth every 6 (six) hours if needed for moderate pain. 9 tablet Active Additional Information Patient not taking.Reported on 01/06/2025 clindamycin (Cleocin) 300 MG capsule Take 1 capsule (300 mg) by mouth 3 (three) times a day. Active cephalexin (Keflex) 500 MG capsule Take 1 capsule (500 mg) by mouth 2 (two) times a day. Active mupirocin (Bactroban) 2 % ointment Apply 1 Application topically 2 (two) times a day. Active Active Problems Problem Noted Date Diagnosed Date Fibroids, intramural 08/21/2024 Rectal bleeding 07/23/2024 Seasonal allergies 07/01/2024 Hypertension 07/01/2024 Clostridium difficile infection 07/01/2024 Overview (07/01/2024): Currently being treated07/01/2024 with Vancomycin Tobacco use disorder 06/28/2024 Resolved Problems Problem Noted Date Diagnosed Date Resolved Date Dental disease 07/01/2024 07/13/2025 Overview (07/01/2024): Missing Teeth...Upper and Lower Pelvic mass in female 06/28/20242023 Bronchitis 08/23/2023 07/13/2025 Family History Medical History Relation Name Comments Cancer Father Diabetes Father Heart disease Father Rectal cancer Father Heart disease Mother Diabetes Other Relation Name Status Comments Father Mother Other Social History Tobacco Use Types Packs/Day Years Used Date Smoking Tobacco: Every Day Cigarettes 1 41.2 Started: 06/28/1984 Smokeless Tobacco: Never Tobacco Cessation:Ready to Q uit: Not Asked; Counseling Given: Not Answered Alcohol Use Standard Drinks/Week Comments Not Currently 0 (1 standard drink = 0.6 oz pur e alcohol) Humiliation, Afraid, Rape, and Kick questionnair e Answer Date Recorded Within the last year, have y ou been afraid of your partner or ex-partner? No 07/24/2024 Within the last year, have y ou been humiliated or emotionally abused in other ways by your partner or ex-partner? No Within the last year, have y ou been kicked, hit, slapped, or otherwise physically hurt by your partner or ex-partner? No 07/24/2024 Within the last year, have y ou been raped or forced to have any kind of sexual activity by your partner or ex-partner? No 07/24/2024 PHQ-2 Answer Date Recorded Patient Health Questionnaire-2 Score 0 08/22/2024 Hunger Vital Sign Answer Date Recorded Within the past 12 months, y ou worried that your food would run out before you got the money to buy more. Never true 07/24/20 24 Within the past 12 months, t he food you bought just didn't last and you didn't have money to get more. Never true 07/24/2024 PRAPARE - Transportation Answer Date Re corded In the past 12 months, has l ack of transportation kept you from medical appointments or from getting medications? No 11/2023 In the past 12 months, has l ack of transportation kept you from meetings, work, or from getting things needed for daily living? No 07/24/2024 Housing Stability Vital Sign Answer Thony e Recorded In the last 12 months, was t here a time when you were not able to pay the mortgage or rent on time? No 07/24/2024 Number of Places Lived in the Last Year Not on f ile 07/24/2024 In the last 12 months, was t here a time when you did not have a steady place to sleep or slept in a long term (including now)? No 07/24/2024 Utilities Answer Date Recorded In the past 12 months has th e electric, gas, oil, or water company threatened to shut off services in your home? No 07/24/2024 Comments No Sex and Gender Information Value Date Recorded Sex Assigned at Not on file Legal Sex Female 7:44 PM EDT Gender Identity Not on file Sexual Orientation Not on file Last Filed Vital Signs Vital Sign Reading Time Taken Comments Blood Pressure 144/103 01/06/2025 2:15 PM EDT Pulse 84 01/06/2025 2:15 PM EDT Temperature 36.7 C (98 F) 01/06/2025 1:47 PM EDT Respiratory Rate 17 01/06/2025 2:15 PM EDT Oxygen Saturation 95% 01/06/2025 2:15 PM EDT Inhaled Oxygen Concentration - - Weight 98.9 kg (218 lb 0.6 oz) 01/06/2025 12:01 PM EDT Height 160 cm (5' 3 ) 01/06/2025 12:01 PM EDT Body Mass Index 38.62 01/06/2025 12:01 PM EDT Plan of Treatment Health Maintenance Due Date Last Done Comments [facility]-HIV Screening 1968 [facility]-Hepatitis C Screening 1968 [facility]-Infant/Child/Adol SDOH Screenings 1968 [facility]- SDOH Screenings 1986 [facility]-Adult SDOH Screenings 1986 [facility]-DTaP,Tdap,and Td Vaccine s (1 - Tdap) 1987 [facility]-Hepatitis B Vaccines (1 of 3 - 19+ 3-dose series) 1987 [facility]-Pneumococcal Vaccine: 50 + Years (1 of 2 - PCV) 1987 CT Colonography 2013 FIT-DNA 2013 FIT 2013 FOBT 2013 Sigmoidoscopy 2013 Lung Cancer Screening Shared Decision Making 2018 [facility]-Breast Cancer Screening 2018 [facility]-Lung Cancer Screening 2018 [facility]-Zoster Vaccines (1 of 2) 2018 [id number] Vaccine ( season) 2025 [facility]-Influenza Vaccine (#1) 2025 [facility]-Depression Screening 08/22/2025 08/22/2024 Colonoscopy 01/06/2028 01/06/2025, 07/08/2024 [facility]-Colorectal Cancer Screening 01/06/2028 [facility]-Cervical Cancer Screening Discontinued [facility]-HPV/Cotest Discontinued 06/28/2024 [facility]-Obesity Intervention Completed 06/28/2024 [facility]-Pap Smear Discontinued 06/28/2024 HPV Vaccines Aged Out No longer eligi ble based on patient's age to complete this topic [facility]-HIB Vaccines Aged Out No longer e ligible based on patient's age to complete this topic [facility]-Hepatitis A Vaccines Aged Out No longer eligible based on patient's age to complete this topic [facility]-IPV Vaccines Aged Out No longer e ligible based on patient's age to complete this topic [facility]-Rotavirus Vaccines Aged Out No lo nger eligible based on patient's age to complete this topic Procedures Procedure Name Priority Date/Time Associated Diagnosis Comments COLONOSCOPY Routine 01/06/2025 1:43 PM EDT Rectal bleeding PAP TEST - CYTOLOGY Routine 06/28/2024 1 0:55 AM EDT Pelvic mass in female Pelvic mass Rectal bleeding from Last 3 Months or Most Recently Relevant to Health Maintenance Results * Colonoscopy (01/06/2025 1:43 PM EDT) Anatomical Region Laterality Modality Endoscopy Narrative 01/06/2025 1:53 PM EDT Table formatting from the original result was not included. Impression: Multiple polyps Post Procedure Diagnosis None Recommendations Await pathology results Await pathology results Repeat colonoscopy in 3 years, due: 01/06/2028 Indication Screen for Colorectal Cancer, Average Risk Medications See anesthesia record for anesthesia administered medications. Staff Staff Role Hussein Bernal MD Anesthesiologist Onel Barnes CRNA PUMP RUNNER Preprocedure A history and physical has been performed, and patient medication allergies have been reviewed. The patient's tolerance of previous anesthesia has been reviewed. The risks and benefits of the procedure and the sedation options and risks were discussed with the patient. All questions were answered and informed consent obtained. Details of the Procedure The patient underwent monitored anesthesia care, which was administered by an anesthesia professional. The patient's blood pressure, heart rate, level of consciousness, respirations and oxygen were monitored throughout the procedure. A digital rectal exam was performed. A perianal exam was performed. The scope was introduced through the anus and advanced to the cecum. Retroflexion was performed in the rectum. The quality of bowel preparation was evaluated using the Philadelphia Bowel Preparation Scale with scores of: right colon = 2, transverse colon = 3, left colon = 2. The total BBPS score was 7. Bowel prep was adequate. The patient experienced no blood loss. The procedure was moderately difficult due to angulation and tortuous colon. In response to procedure difficulty, the instrument was changed to a pediatric endoscope and water immersion technqiue was employed. The patient tolerated the procedure well. There were no apparent adverse events. Attestation I personally performed the entire procedure Events Procedure Events Event Event Time ENDO SCOPE IN TIME 01/06/2025 1:13 PM ENDO CECUM REACHED 01/06/2025 1:21 PM ENDO SCOPE OUT TIME 01/06/2025 1:40 PM Specimens ID Type Source Tests Collected by Time A : cecum polyp Tissue Cecum SURGICAL PATHOLOGY EXAM Darlene Paul MD 01/06/2025 1321 B : ascending colon polyp Tissue Ascending Colon SURGICAL PATHOLOGY EXAM Darlene Paul MD 01/06/2025 1326 C : rectal polyp bx Tissue Rectum SURGICAL PATHOLOGY EXAM Darlene Paul MD 01/06/2025 1338 Findings One adenomatous-appearing and semi-pedunculated polyp measuring 5-9 mm in the cecum; performed cold snare with complete en bloc removal and retrieved specimen One semi-pedunculated polyp measuring 5-9 mm in the ascending colon; performed cold snare with complete en bloc removal and retrieved specimen Multiple benign-appearing and hyperplastic polyps measuring smaller than 5 mm in the distal rectum; performed cold forceps biopsy with complete en bloc removal us Darlene Sullivan MD GI PROCEDURE ORDERABLES F inal Result * Pap Test (06/28/2024 10:55 AM EDT) Case Report Cytology Case: [id number] Authorizing Provider: Zana Melendrez MD Collected: 06/28/2024 1055 Ordering Location: [facility] Gynecology Received: 07/01/2024 1035 First Screen: Sydnie Marks Rescreen: Nidhi Winslow Specimen: ThinPrep Pap Test, Liquid-Based Cervical/Vaginal 07/08/2024 9:22 AM EDT [facility] Interpretation NEGATIVE FOR INTRAEPITHELIAL LESION OR MALIGNANCY 07/08/2024 9:22 AM EDT [facility] at 0922 EDT Specimen Adequacy Satisfactory for evaluation; transformation zone component cannot be definitely identified due to the presence of atrophy or other hormonal changes. Slide scanned and imaged by ThinPrep Imaging System with manual review of all selected chau. 07/08/2024 9:22 AM EDT [facility] Cervical cytology is a screening test primarily for squamous cancers and precursors and has associated false negative and positive results. New technologies such as liquid based sampling may decrease but will not eliminate all false negative results. Regular screening and follow-up of unexplained clinical signs and symptoms are recommended to minimize false negative results. Please see the ASCCP website (www.asccp.org)fo r followup recommendations. If HPV testing was requested, correlation with the results is suggested (please call Microbiology at [phone] for results). 07/08/2024 9:22 AM EDT [facility] Menstrual Status Post-Menopausal 9:22 AM EDT [facility] Contraceptive History Not Applicable 07/08/2024 9:22 AM EDT [facility] Screening Type Previous or Suspected Abnormality 07/08/2024 9:22 AM EDT [facility] HPV Testing Requested? 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 (please specify): 07/08/2024 9:22 AM EDT [facility] Comment:Abdominopelvic mass Clinical Information R19.00 - Pelvic mass in female [ICD-10-CM] R19.00 - Pelvic mass [ICD-10-CM] K62.5 - Rectal bleeding [ICD-10-CM] 07/08/2024 9:22 AM EDT [facility] Swab Vaginal and cervical cytologic material / Unknown Non-blood Collection / Unknown 06/28/2024 10:55 AM EDT 07/01/2024 10:35 AM EDT us Zana Melendrez MD LAB CYTOLOGY ORDERABLES Fi nal Result [facility] [address] [place] [address] from Last 3 Months or Most Recently Relevant to Health Maintenance Insurance ANTH Advance Directives * Full Code (Latest Code Status on File) Date Activated Date Inactivated Comments 07/23/2024 11:13 AM 07/25/2024 2:01 PM Question Answer Comments Patient has decision-making capacity? 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
--- NOTE | 2025-08-25 16:52 | ED_ITS ---
<Statement entered by Young Lester MD - 08/25/25 22:22> I was consulted by the MARJORIE, and we discussed the complexity of the problems being addressed. I approve the treatment and management plan for this patient's care in the emergency department, thus performing a substantive portion of the medical decision making. Young Lester MD Discharge Plan Disposition Patient Disposition: Home, Self-Care Prescriptions Prescriptions: New doxycycline hyclate 100 mg tablet 100 mg PO BID 10 Days Qty: 20 0RF No Action metoprolol succinate 50 mg tablet extended release 24 hr 50 mg PO DAILY Patient Comments: TAKE ONE TABLET BY MOUTH EVERY DAY ibuprofen 400 mg tablet 400 mg PO QID lisinopril 5 mg tablet 5 mg PO DAILY Patient Comments: TAKE ONE TABLET BY MOUTH EVERY DAY enoxaparin 40 mg/0.4 mL syringe 40 mg SQ DAILY rosuvastatin 10 mg tablet 10 mg PO HS Patient Comments: TAKE ONE TABLET BY MOUTH EVERY DAY AT BEDTIME clindamycin HCl 300 mg capsule 300 mg PO Q8H Qty: 30 0RF mupirocin 2 % ointment 1 applic topical TID 7 Days Qty: 15 0RF cephalexin 500 mg capsule 500 mg PO QID 10 Days Qty: 40 0RF Referrals Follow up/Referrals: Provider,Referral, [Primary Care Provider, Medical] - See instructions Activity Restrictions/Add. Instructions Additional Instructions/Restrictions: Take antibiotic as directed. If rash worsens or does not improve please return to the ED or see your PCP. Clinical Impressions Clinical Impression: Tick bite Instructions Patient Instructions: Insect Bites (Alternative Therapy) Print Language Print Language: [place] Citizen Discharge ED Provider: Young Lester General Adult HPI General Chief complaint: Skin/Abscess/Foreign Body Stated complaint: tick/tick bite upper, R thigh, swollen, red Time Seen by Provider: 08/25/25 16:34 Mode of Arrival: Ambulatory Source of Information: Patient Description of Symptoms (Recalled from ER Triage Doc. by RN): Pt noticed a tick on her upper right thigh @ around 1400. Pt removed the tick but noticed some redness and swelling around the bite, pt states she isnt sure if she got the head of the tick out of not. Pt is complaining of a headache as well. History of Present Illness HPI narrative: 54-year-old female presents to the ED today for complaint of tick on her right thigh at 2:00 today. She removed the tick but noticed redness and swelling around the bite. She is unsure if she got the complete tick out but she brought it with her. She does have a bit of a rash. She has a st. croix around the bite and then redness. No fevers or chills. She does have a headache. No other symptoms. She is unsure how long the tick was attached but she went on a hay ride on Monday. She pulled this thing off today. Related Data Home Medications ?Medication ?Instructions ?Recorded ?Confirmed enoxaparin 40 mg/0.4 mL 40 mg SQ DAILY 08/06/2407/23 subcutaneous syringe ibuprofen 400 mg tablet 400 mg PO QID 08/06/2408/06 lisinopril 5 mg tablet 5 mg PO DAILY 08/06/2408/06 metoprolol succinate 50 mg 50 mg PO DAILY 08/06/24 tablet,extended release 24 hr rosuvastatin 10 mg tablet 10 mg PO HS 08/06/24 4 Previous Rx's ?Medication ?Instructions ?Recorded clindamycin HCl 300 mg capsule 300 mg PO Q8H #30 caps 08/06/24 mupirocin 2 % topical ointment 1 applic topical TID 7 days #15 08/06/24 grams cephalexin 500 mg capsule 500 mg PO QID 10 days #40 ca ps 08/11/24 doxycycline hyclate 100 mg tablet 100 mg PO BID 10 day s #20 tabs 08/25/25 Allergies Allergy/AdvReac Type Severity Reaction Status Date / Time levofloxacin (From Levaquin) Allergy Diarrhea Verified 08/06/24 11:45 Penicillins Allergy Rash Verified 08/06/24 11:45 [facility] Disclaimer: The information contained in this section may have been updated after the patient was seen, as this information can be updated by other users. Medical History (Updated 08/25/25 @ 16:52 by Haydee LONGO)RUTH) Cancer Asthma Hyperlipidemia Hypertension Surgical History (Updated 09/07/22 @ 12:30 by Particia Botello RN) History of appendectomy History of section History of cholecystectomy Social History (Updated 09/07/22 @ 12:50 by Jagruti Barrett APRN) Smoking Status: Current every day smoker tobacco type: cigarettes packs per day: 1 alcohol intake: never substance use type: denies use current occupational status: other Travel in the last 8 weeks?: None Have you lived/traveled outside US in past 30 days?: No Contact w/someone who lives/traveled outside US past 30 days?: No Exposure to someone with infectious disease in past 14 days?: No Do you have a fever (greater than 100.4 F or 38 C)?: No Have you tested positive for COVID-19?: No Exposed to someone with COVID-19 in past 14 days?: No Do you have a sore throat?: No Do you have a cough?: No Do you have any weakness?: No Do you have any diarrhea?: No Are you experiencing any unusual bleeding?: No Do you have any muscle aches/pain?: No Do you have any abdominal pain?: No Are you experiencing loss of taste or smell?: No Other Medical History Have you received the Flu Vaccine for this season: No ROS Obtained: Yes Systems reviewed as appropriate & no additional complaints except as documented Constitutional Constitutional: Reports as per HPI Physical Exam General General appearance: alert and in no apparent distress Head Head exam: normocephalic Eye Eye exam: Present PERRL and EOMI ENT ENT exam: Present normal oropharynx and mucous membranes moist Neck Neck exam: Present full ROM and trachea midline Respiratory Respiratory exam: Present normal lung sounds bilaterally Cardiovascular Cardiovascular exam: Present regular rate and normal rhythm Extremities Exam Extremities exam: Present full ROM Neurological Exam Neurological exam: Present alert and oriented X3 Skin Skin exam: Present warm, dry and rash (right upper thigh with st. croix around tick bite with erythema) Medical Decision Making Medical Records Screening: Per USPSTF and CDC recommendations, given the prevalence of disease in our region, it is our hospital?s policy to screen for HIV and viral Hepatitis for all patients aged 18 and over and those with ongoing risk factors. Chinedu Inquiry Pt receiving controlled substance: No Chinedu was queried for this patient: No Vital Signs: 08/25/25 15:48 08/25/25 15:52 Temperature 97.6 F Temperature Source Temporal Artery Scan Pulse Rate 90 Pulse Rate [Right] 82 Respiratory Rate 20 18 Blood Pressure 160/100 H Blood Pressure [Right Arm] 160/100 H Blood Pressure Mean [Right Arm] 120 Blood Pressure Source Automatic Cuff Blood Pressure Source [Right Arm] Automatic Cuff Blood Pressure Position Sitting Blood Pressure Position [Right Arm] Sitting 02 Sat by Pulse Oximetry 98 97 Oxygen Delivery Method Room Air Medical Decision Narrative: patient is a 54-year-old female presenting to the emergency department for evaluation of tick bite rash. Patient is hemodynamically stable and nontoxic- appearing upon arrival, afebrile. Differential diagnosis includes tickborne illness. Workup will be conducted with hematologic labs, specific imaging. Patient was given prescription for doxycycline to prevent and/or treat Lyme. I discussed with patient to follow-up with PCP if rash worsens or does not imp rove. Also if she develops any signs or symptoms of Lyme she is to return to the ED or see her PCP. Patient safe for discharge home Critical Care Critical Care Time Critical Care Time: No
[2025-08-25 17:15] VITALS: BP 148/95; PULSE 88; RESP 16; TEMP 36.4; O2SAT 98
== END 2025-08-25 17:01 | disposition home or self-care (01) ==
PROVIDERS: Emergency Provider Student in an Organized Health Care Education/Training Program
DX: S70.361A Insect bite (nonvenomous), right thigh, initial encounter (principal); W57.XXXA Bitten or stung by nonvenomous insect and other nonvenomous arthropods, initial encounter
CPT/HCPCS: 99282; 99283